=== PATIENT | male | born 1950 | race Caucasian/White ===

== ENCOUNTER 2018-10-02 13:01 | Emergency (ER) | payer OTHER ==
[~2018-10-02] VITALS: Ht 185.4 cm; Wt 81.6 kg
--- NOTE | 2018-10-02 13:01 | NUR ---
PATIENT BIBA TO BED 3 AT THIS TIME.
[2018-10-02 13:05] VITALS: BP 152/87
--- NOTE | 2018-10-02 13:07 | NUR ---
BIBA DUE TO S/P T/C. PT DROVE INTO A [employer] FENCE. PER EMS PT HAD A SYNCOPE EPISODE AND LOW BLOOD SUGAR OF 63 AND WAS GIVEN AN IV D10 BY EMS. IV ON LFA 20 G. AT ER, PT ALERT, ORIENTED, BUT DENIES REMEMBERING WHAT HAPPENED. PATIENT DENIES ANY PAIN AT THIS TIME. BLOOD SUGAR CHECKED OF 142 IN ER. PATIENT POSITIONED FOR COMFORT; HOB ELEVATED; BEDRAILS UP X2; BED DOWN. MD AT BESIDE.
--- NOTE | 2018-10-02 13:07 | NUR ---
Note undone in EDM - 10/02/18 at 1342 by MED PATIENT CAME IN VIA DUE TO S/P T/C RUN IN TO A [employer] FENCE. LOW BLOOD SUGAR. BLOOD SUGAR RECHECKED 142. AAOX4, WITH EVEN AND STEADY GAIT. PATIENT DENIES ANY PAIN AT THIS TIME. CAME IN WITH IV TO L FOREARM, 20G RUNNING WITH IV D10. PATIENT POSITIONED FOR COMFORT; HOB ELEVATED; BEDRAILS UP X2; BED DOWN. MD AT BESIDE.
--- NOTE | 2018-10-02 13:07 | NUR ---
Note undone in EDM - 10/02/18 at 1455 by MED BIBA DUE TO S/P T/C. PT DROVE INTO A [employer] FENCE. PER EMS PT HAD A SYNCOPE EPISODE AND LOW BLOOD SUGAR AND WAS GIVEN AN IV D10 BY EMS. IV ON LFA 20 G. AT ER, PT ALERT, ORIENTED, BUT DENIES REMEMBERING WHAT HAPPENED. PATIENT DENIES ANY PAIN AT THIS TIME. BLOOD SUGAR CHECKED OF 142 IN ER. PATIENT POSITIONED FOR COMFORT; HOB ELEVATED; BEDRAILS UP X2; BED DOWN. AT BESIDE.
--- NOTE | 2018-10-02 13:15 | NUR ---
DR. ALFRED AT BEDSIDE EVALUATING PATIENT.
[2018-10-02] MEDS ORDERED: DEXTROSE 50% 50 ML SYR IVP ONE (13:25)
--- NOTE | 2018-10-02 13:49 | NUR ---
LAB AT BEDSIDE.
--- NOTE | 2018-10-02 14:00 | NUR ---
FOOD TRAY PROVIDED FOR PATIENT AT THIS TIME.
[2018-10-02 14:05] LABS: BASOPHILS % (AUTO) 0.4 % (0.0-2.0); EOSINOPHILS # (AUTO) 0.3 K/uL (0-0.4); HEMATOCRIT 53.8 % (36-52); LYMPHOCYTES % (AUTO) 12.6 % (20.5-51.1); MEAN CORPUSCULAR HEMOGLOBIN 30 pg (27-31); MEAN CORPUSCULAR HGB CONC 33 g/dL (33-37); MEAN CORPUSCULAR VOLUME 88.5 fL (80-94); MONOCYTES # (AUTO) 0.6 K/uL (0.8-1.0); MONOCYTES % (AUTO) 7.1 % (1.7-9.3); NEUTROPHILS # (AUTO) 6.4 K/uL (1.8-7.7); NEUTROPHILS % (AUTO) 76.9 % (42.2-75.2); PLATELET COUNT (AUTO) 138 K/uL (140-450); RED BLOOD CELL COUNT(AUTO) 6.08 MIL/uL (4.20-6.10); RED CELL DISTRIBUTION WIDTH 14.6 % (11.6-13.7); WHITE BLOOD COUNT (AUTO) 8.3 K/uL (4.8-10.8)
[2018-10-02 14:30] LABS: ANION GAP 10.3 (8-16); CARBON DIOXIDE 32.5 mmol/L (21-32); CHLORIDE 100 mmol/L (98-107); CREATININE 1.2 mg/dL (0.7-1.3); GFR ARICAN-AMERICAN 78 mL/min (>90); GLUCOSE 179 mg/dL (74-106); POTASSIUM 3.8 mmol/L (3.5-5.1); SODIUM SERUM 139 mmol/L (136-145); UREA NITROGEN, BLOOD 19 mg/dL (7-18)
--- NOTE | 2018-10-02 14:30 | NUR ---
PATIENT URINATED 400 CC, YELLOW AND CLEAR. URINE SPECIMEN COLLECTED
[2018-10-02 14:36] LABS: ALBUMIN 4.2 g/dL (3.4-5.0); ASPARTATE AMINOTRANSFERASE 37 U/L (15-37); MAGNESIUM 1.9 mg/dL (1.8-2.4); TOTAL BILIRUBIN 0.7 mg/dL (0.0-1.0)
[2018-10-02 14:39] LABS: ACETONE, SERUM NEGATIVE (NEGATIVE)
[2018-10-02 15:23] VITALS: BP 135/68
--- NOTE | 2018-10-02 15:23 | NUR ---
Patient discharged with v/s stable. Written and verbal after care instructions given and explained. Patient verbalized understanding. Ambulatory with steady gait. All questions addressed prior to discharge. Advised to follow up with PMD.
[2018-10-02 15:27] LABS: APPEARANCE,URINE CLEAR (CLEAR); BILIRUBIN,URINE NEGATIVE (NEGATIVE); BLOOD, URINE NEGATIVE (NEGATIVE); COLOR,URINE YELLOW (YELLOW); LEUKOCYTE ESTERASE ,URINE NEGATIVE (NEGATIVE); NITRITE, URINE NEGATIVE (NEGATIVE); UGLUCOSE TRACE (NEGATIVE)
== END 2018-10-02 15:23 | disposition home or self-care (01) ==
LOC: MED 13:01
DX: E10.649 Type 1 diabetes mellitus with hypoglycemia without coma (principal); I10 Essential (primary) hypertension
CPT/HCPCS: 36415; 36600; 70450; 71045; 80053; 81003; 82009; 82803; 83036; 83735; 84484; 85025; 93005; 96374; 99284; Q0092